=== PATIENT | male | born 1940 | race Caucasian/White ===

== ENCOUNTER 2017-03-14 11:11 | Observation (INO) | payer MEDICARE ==
[2017-03-14 11:51] LABS: Hematocrit 40.1 % (42-50); Mean Cell Volume 91.1 fl (78-100); Mean Corpuscular Hemoglobin 29.5 pg (26-32); Mean Corpuscular Hgb Concent. 32.4 g/dl (32-36); Mean Platelet Volume 10.2 fl (6-9.5); Platelet Count 244 K/mm3 (150-450); Red Cell Distribution Width 14.6 % (11.5-14.0); White Blood Count 9.4 K/mm3 (4.0-10.5)
[2017-03-14] MEDS ORDERED: Cardizem IV 50 MG/10 ML IV ONE (11:52)
[2017-03-14] MEDS: CARDIZEM DRIP 100 MG/100 ML D5W 100 ML IV PRN ×2 (12:05→20:06)
[2017-03-14 12:31] LABS: ALBUMIN 3.9 g/dL (3.4-5.0); ALKALINE PHOSPHATASE 69 U/L (46-116); ANION GAP 11.7 MEQ/L (5-15); BLOOD UREA NITROGEN 14 mg/dL (9-20); CHLORIDE 104 mEq/L (98-107); Calcium 9.1 mg/dL (8.5-10.1); Carbon Dioxide 27.3 mEq/L (21-32); EST GLOMERULAR FILTRATION RATE > 60 ML/MIN; Glucose 108 MG/DL (70-110); Potassium 3.5 mEq/L (3.5-5.1); SGOT/AST 30 U/L (15-37); SGPT/ALT 50 U/L (12-78); SODIUM 140 mEq/L (136-145); TSH, 3RD Generation 0.788 mIU/L (0.358-3.740)
--- NOTE | 2017-03-14 12:33 | XRAY ---
Indication: Atrial fibrillation. Comparison: None Portable chest demonstrates lingular atelectasis/scarring and right base calcified granulomas. Remaining lungs clear. Heart is borderline enlarged. Vascularity normal. Bony thorax intact with old left clavicle and right 8th rib fractures. Impression: Nonacute chest with chronic features.
[2017-03-14] MEDS: ELIQUIS PO SCH ×2 (14:34→21:30)
[2017-03-14 16:38] LABS: Appearance CLEAR (CLEAR); Glucose NEGATIVE (NEGATIVE); Leukocyte Esterase NEGATIVE (NEGATIVE); Nitrite NEGATIVE (NEGATIVE); Protein,Urine Dip NEGATIVE (Negative)
[2017-03-14 16:39] LABS: Bilirubin NEGATIVE (NEGATIVE); Blood NEGATIVE Ery/ul (0-5); Ketones NEGATIVE (NEGATIVE); Urobilinogen NORMAL mg/dL (0-1)
--- NOTE | 2017-03-15 08:08 | PCM.NOTE ---
Date and Time: 03/15/17806 Subjective Assessment: patient denies complaints, states he feels great. no chest pain, no dyspnea. heart rate is controlled but goes up with any movement Objective Exam General Appearance: no apparent distress, alert Skin Exam: normal color, warm, dry Respiratory Exam: normal breath sounds, lungs clear, No respiratory distress Cardiovascular Exam: regular rate/rhythm, normal heart sounds Gastrointestinal/Abdomen Exam: soft, No tenderness, No mass Extremity Exam: normal inspection, normal range of motion OBJECTIVE DATA Vital Signs: Vital Signs - 24 hr Temp Pulse Resp BP BP Pulse Ox 03/15/17 06:00 91 H 14 109/83 93 L 03/15/17 05:00 110 H 21 116/91 94 L 03/15/17 04:00 98.7 F 94 H 14 124/83 94 L 03/15/17 03:00 115 H 22 96/74 94 L 03/15/17 02:00 109 H 12 110/83 92 L 03/15/17 01:00 98 H 19 116/59 93 L 03/15/17 00:01 105 H 03/15/17 00:00 98.7 F 105 H 12 124/69 93 L 03/14/17 23:00 96 H 16 118/81 91 L 03/14/17 22:00 89 12 120/81 92 L 03/14/17 21:00 96 H 18 116/87 93 L 03/14/17 20:00 98.4 F 104 H 21 106/76 93 L 03/14/17 18:52 88 17 97/61 92 L 03/14/17 18:00 87 17 92 L 03/14/17 17:00 103 H 16 97/78 93 L 03/14/17 16:00 98.6 F 110 H 16 110/69 92 L 03/14/17 15:00 125 H 16 106/77 94 L 03/14/17 14:00 98.6 F 93 H 15 106/77 94 L 03/14/17 12:52 98.6 F 126 H 18 115/59 95 03/14/17 12:05 128 H 108/90 03/14/17 12:00 98.6 F 128 H 18 108/90 95 03/14/17 11:50 98.6 F 144 H 18 108/90 95 03/14/17 11:29 98.6 F 144 H 18 108/90 95 Oxygen-Last 24 hours O2 Percentage 2 Liters = 28% O2 Percentage 2 Liters = 28% O2 Percentage 2 Liters = 28% O2 Percentage 2 Liters = 28% O2 Percentage 2 Liters = 28% Pain Assessment - Last Documented Pain Intensity 0 Pain Scale Used 0-10 Pain Scale Intake and Output: Intake & Output 03/12/17 03/13/17 03/14/17 03/15/17 11:59 11:59 11:59 11:59 Intake Total 488 Output Total 1400 Balance -912 Weight 124.8 kg Lab Results: Lab Results-Last 24 Hours 03/14/17 03/14/17 03/14/17 Range/Units 11:40 11:40 11:40 WBC 9.4 (4.0-10.5) K/mm3 Corrected WBC (auto) RBC 4.40 (4.1-5.6) M/mm3 Hgb 13.0 (12.5-18.0) gm/dl Hct 40.1 L (42-50) % MCV 91.1 (78-100) fl MCH 29.5 (26-32) pg MCHC 32.4 (32-36) g/dl RDW 14.6 H (11.5-14.0) % Plt Count 244 (150-450) K/mm3 MPV 10.2 H (6-9.5) fl Gran % Lymphocytes % Monocytes % Eosinophils % Basophils % Basophils # Sodium 140 (136-145) mEq/L Potassium 3.5 (3.5-5.1) mEq/L Chloride 104 (98-107) mEq/L Carbon Dioxide 27.3 (21-32) mEq/L Anion Gap 11.7 (5-15) MEQ/L BUN 14 (9-20) mg/dL Creatinine 1.00 (0.55-1.30) mg/dl Estimated GFR > 60 ML/MIN Glucose 108 (70-110) MG/DL Calcium 9.1 (8.5-10.1) mg/dL Magnesium (1.8-2.4) mg/dL Total Bilirubin 0.40 (0.2-1.0) mg/dL AST 30 (15-37) U/L ALT 50 (12-78) U/L Alkaline Phosphatase 69 (46-116) U/L Troponin I < 0.017 (0.000-0.056) ng/ml NT-Pro-B Natriuret Pep (0-125) pg/ml Serum Total Protein 7.0 (6.4-8.2) gm/dL Albumin 3.9 (3.4-5.0) g/dL TSH 3rd Generation 0.788 (0.358-3.740) mIU/L Ur Collection Type Urine Color (YELLOW) Urine Appearance (CLEAR) Urine pH (5-6) Ur Specific Ira (1.005-1.025) Urine Protein (Negative) Urine Ketones (NEGATIVE) Urine Blood (0-5) Logan/ul Urine Nitrite (NEGATIVE) Urine Bilirubin (NEGATIVE) Urine Urobilinogen (0-1) mg/dL Ur Leukocyte Esterase (NEGATIVE) Urine Glucose (NEGATIVE) mg/dL Slides for Path Review Specimen Received 03/14/17 03/14/17 03/14/17 Range/Units 11:40 12:15 12:15 WBC Cancelled (4.0-10.5) K/mm3 Corrected WBC (auto) Cancelled RBC Cancelled (4.1-5.6) M/mm3 Hgb Cancelled (12.5-18.0) gm/dl Hct Cancelled (42-50) % MCV Cancelled (78-100) fl MCH Cancelled (26-32) pg MCHC Cancelled (32-36) g/dl RDW Cancelled (11.5-14.0) % Plt Count Cancelled (150-450) K/mm3 MPV Cancelled (6-9.5) fl Gran % Cancelled Lymphocytes % Cancelled Monocytes % Cancelled Eosinophils % Cancelled Basophils % Cancelled Basophils # Cancelled Sodium (136-145) mEq/L Potassium (3.5-5.1) mEq/L Chloride (98-107) mEq/L Carbon Dioxide (21-32) mEq/L Anion Gap (5-15) MEQ/L BUN (9-20) mg/dL Creatinine (0.55-1.30) mg/dl Estimated GFR ML/MIN Glucose (70-110) MG/DL Calcium (8.5-10.1) mg/dL Magnesium 2.1 (1.8-2.4) mg/dL Total Bilirubin (0.2-1.0) mg/dL AST (15-37) U/L ALT (12-78) U/L Alkaline Phosphatase (46-116) U/L Troponin I (0.000-0.056) ng/ml NT-Pro-B Natriuret Pep 1885 H (0-125) pg/ml Serum Total Protein (6.4-8.2) gm/dL Albumin (3.4-5.0) g/dL TSH 3rd Generation (0.358-3.740) mIU/L Ur Collection Type Urine Color (YELLOW) Urine Appearance (CLEAR) Urine pH (5-6) Ur Specific Ira (1.005-1.025) Urine Protein (Negative) Urine Ketones (NEGATIVE) Urine Blood (0-5) Logan/ul Urine Nitrite (NEGATIVE) Urine Bilirubin (NEGATIVE) Urine Urobilinogen (0-1) mg/dL Ur Leukocyte Esterase (NEGATIVE) Urine Glucose (NEGATIVE) mg/dL Slides for Path Review Cancelled Specimen Received 03/14/17 Range/Units 15:17 WBC (4.0-10.5) K/mm3 Corrected WBC (auto) RBC (4.1-5.6) M/mm3 Hgb (12.5-18.0) gm/dl Hct (42-50) % MCV (78-100) fl MCH (26-32) pg MCHC (32-36) g/dl RDW (11.5-14.0) % Plt Count (150-450) K/mm3 MPV (6-9.5) fl Gran % Lymphocytes % Monocytes % Eosinophils % Basophils % Basophils # Sodium (136-145) mEq/L Potassium (3.5-5.1) mEq/L Chloride (98-107) mEq/L Carbon Dioxide (21-32) mEq/L Anion Gap (5-15) MEQ/L BUN (9-20) mg/dL Creatinine (0.55-1.30) mg/dl Estimated GFR ML/MIN Glucose (70-110) MG/DL Calcium (8.5-10.1) mg/dL Magnesium (1.8-2.4) mg/dL Total Bilirubin (0.2-1.0) mg/dL AST (15-37) U/L ALT (12-78) U/L Alkaline Phosphatase (46-116) U/L Troponin I (0.000-0.056) ng/ml NT-Pro-B Natriuret Pep (0-125) pg/ml Serum Total Protein (6.4-8.2) gm/dL Albumin (3.4-5.0) g/dL TSH 3rd Generation (0.358-3.740) mIU/L Ur Collection Type VOID Urine Color YELLOW (YELLOW) Urine Appearance CLEAR (CLEAR) Urine pH 5.0 (5-6) Ur Specific Ira 1.010 (1.005-1.025) Urine Protein NEGATIVE (Negative) Urine Ketones NEGATIVE (NEGATIVE) Urine Blood NEGATIVE (0-5) Logan/ul Urine Nitrite NEGATIVE (NEGATIVE) Urine Bilirubin NEGATIVE (NEGATIVE) Urine Urobilinogen NORMAL (0-1) mg/dL Ur Leukocyte Esterase NEGATIVE (NEGATIVE) Urine Glucose NEGATIVE (NEGATIVE) mg/dL Slides for Path Review Specimen Received 03/14/17 1630 Radiology Exams: Radiology Procedures Category Date Time Status CHEST 1 VIEW (PORTABLE) Routine Exams 03/14/17 11:45 Completed ECHO W/2D AND DOPPLER [US] Routine Exams 03/14/17 15:15 Taken Assessment/Plan (1) Atrial fibrillation with RVR Current Visit: Yes Status: Acute Assessment & Plan: started on eliquis, transition to po cardizem today. if rate controlled and continues to be asymtomatic might be able to discharge later today or tomorrow Code(s): I48.91 - UNSPECIFIED ATRIAL FIBRILLATION
[2017-03-15] MEDS: ELIQUIS PO SCH ×2 (09:21→18:00)
[2017-03-15] MEDS ORDERED: Cardizem CD 180 MG PO SCH (10:00)
[2017-03-15 13:04] VITALS: O2SAT 94
[2017-03-15 16:44] VITALS: PULSE 95
[2017-03-15 16:46] VITALS: BP 119/80
== END 2017-03-15 18:05 | disposition home or self-care (01) ==
LOC: UNDOADMOB 11:11 → ICU 11:11 → INTOOBSV 11:11 → ICU 11:11 → UNDODISOB 03-15 18:05
PROVIDERS: ADMIT Family Medicine; ATTEND Family Medicine
DX: I48.91 Unspecified atrial fibrillation (principal)
CPT/HCPCS: 36415; 71045; 80053; 81002; 83735; 83880; 84443; 84484; 85027; 93268; 93306; G0378; A9270-GY

== ENCOUNTER 2018-02-11 09:47 | Inpatient (IN) | payer MEDICARE ==
[2018-02-11] MEDS ORDERED: solu-MEDROL 125 MG IV ONE (10:03)
[2018-02-11] MEDS ORDERED: DUONEB 0.5-3 MG/3 ml Neb IH ONE (10:03)
[2018-02-11] MEDS ORDERED: Pepcid 20 MG VIAL IV ONE ×2 (10:03→10:19)
--- NOTE | 2018-02-11 10:11 | ERPHSYRPT ---
- History of Present Illness Time Seen by Provider: 02/11/18 09:50 Source: patient, family Exam Limitations: no limitations Physician History: cough x 3 weeks; no travel; no exposures; with fever and chills; productive multicolored sputum; no blood or pain; getting worse; seen in clinic 4-5 days ago; given inhaler and shot of steroids; no better Timing/Duration: today (worse), week(s) (3 cough), intermittent, gradual onset, worse Activities at Onset: rest Severity of Dyspnea-Max: moderate Severity of Dyspnea-Current: moderate Possible Cause: occasional episodes Modifying Factors: Improves With: albuterol inhaler (no help), coughing (worse) , exertion Associated Symptoms: cough, fever, wheezing, ankle swelling, chills, productive cough International travel in last 2 weeks: No Allergies/Adverse Reactions: No Known Drug Allergies Allergy (Verified 02/11/18 10:14) Home Medications: Aspirin 1 cap PO DAILY 03/14/17 [History] Albuterol Common Canister [Proventil Common Canister] 90 mcg IH DAILY [History] Carvedilol 25 mg PO DAILY 02/11/18 [History] Furosemide 20 mg [Lasix 20 mg] 20 mg PO DAILY 02/11/18 [History] Losartan Potassium 100 mg PO DAILY 02/11/18 [History] Spironolactone 25 mg PO DAILY 02/11/18 [History] - Review of Systems Constitutional: Fever, Chills, Malaise Eyes: No Symptoms Ears, Nose, & Throat: Nose Congestion (clear), Sinus Drainage (clear), Throat Pain (slight from coughing), No Ear Pain, No Tinnitus, No Throat Swelling, No Painful Swallowing Respiratory: Cough, Dyspnea on Exertion (MIRANDA), Wheezing, No Cyanosis Cardiac: Edema, No Chest Pain, No Palpitations, No Syncope, No Orthopnea Abdominal/Gastrointestinal: No Abdominal Pain, No Nausea, No Vomiting, No Diarrhea Genitourinary Symptoms: No Symptoms Musculoskeletal: Arthralgias, No Neck Pain, No Fall, No Injury Skin: No Symptoms Neurological: No Symptoms Psychological: No Symptoms Endocrine: No Symptoms Hematologic/Lymphatic: No Symptoms Immunological/Allergic: No Symptoms - Past Medical History Pertinent Past Medical History: Yes Neurological History: No Pertinent History ENT History: No Pertinent History Cardiac History: Arrhythmia, Congestive Heart Failure, Hypertension Respiratory History: Asthma Endocrine Medical History: No Pertinent History Musculoskeletal History: No Pertinent History GI Medical History: No Pertinent History History: No Pertinent History Psycho-Social History: No Pertinent History Male Reproductive Disorders: No Pertinent History - Past Surgical History Past Surgical History: No Neuro Surgical History: No Pertinent History Cardiac: No Pertinent History Respiratory: No Pertinent History Gastrointestinal: No Pertinent History Genitourinary: No Pertinent History Musculoskeletal: No Pertinent History Male Surgical History: No Pertinent History - Social History Smoking Status: Never smoker Exposure to second hand smoke: No Alcohol Use: None Drug Use: none Patient Lives Alone: No Significant Family History: hypertension - Female History Hx Now: No - Nursing Vital Signs Nursing Vital Signs: Initial Vital Signs Temperature 100.3 F 02/11/18 09:57 Pulse Rate 120 H 02/11/18 09:57 Respiratory Rate 22 02/11/18 09:57 Blood Pressure 104/69 02/11/18 09:57 O2 Sat by Pulse Oximetry 90 L 02/11/18 09:57 Pain Scale Pain Intensity 0 - Physical Exam General Appearance: moderate distress, alert, obese Eye Exam: PERRL/EOMI, eyes nml inspection, No photophobia Ears, Nose, Throat Exam: hearing grossly normal, normal ENT inspection, normal pharynx, nasal congestion (clear), No pharyngeal erythema, No tonsillar exudate , No tonsillar swelling Neck Exam: normal inspection, non-tender, supple, full range of motion, No meningismus, No JVD Respiratory Exam: respiratory distress (mild to moderate tachypnea), airway intact, prolonged expirations (mild), crackles/rales (bibasilar), wheezing, No normal breath sounds, No chest tenderness, No lungs clear, No rhonchi, No pleural rub Cardiovascular/Chest Exam: normal heart sounds, normal peripheral pulses, edema (trace), tachycardia (130), irregular, No regular rate/rhythm, No murmur, No JVD Abdominal/Gastrointestinal Exam: soft, normal bowel sounds, distention (soft chronic obesity), No tenderness, No mass, No guarding, No pulsatile mass, No rebound, No organomegaly Rectal Exam: deferred Extremity Exam: non-tender, normal range of motion, normal inspection, normal capillary refill, no calf tenderness, pedal edema (trace), No sri's sign Peripheral Pulses Exam: carotid (R): 4+, carotid (L): 4+, femoral (R): 4+, femoral (L): 4+, dorsalis-pedis (R): 3+, dorsalis-pedis (L): 3+ Neurologic Exam: alert, oriented x 3, cooperative, hide paster II-XII nml as tested, normal mood/affect, nml cerebellar function, nml station & gait Skin Exam: normal color, warm, dry, No rash, No cyanosis Lymphatic Exam: No adenopathy SpO2 Interpretation: borderline oxygenation, O2 applied SpO2: 92 Oxygen Delivery: Room Air - Course Nursing assessment & vital signs reviewed: Yes EKG Interpreted by Me: RATE (130), A-fib, Left [place] Deviation, NORMAL INTERVALS , 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; ), Non-specific ST Changes ( flattening of Ts I, avl, V4,5,6), Other (AF w RVR and occassinoal PVC) Rhythm Strip: Rate (128), Atrial Fibrillation, Atrial Tachycardia - Radiology Exams Chest X-ray Interpretation: Reviewed by me, Teleradiologist Report, No Pneumonia, No Pneumothorax, Nml Heart Size, No Infiltrates, Other (aging chest; scarring; unchanged form 02/07/18) Ordered Tests: Active Orders 24 hr Category Date Time Status Bedrest ROUTINE Activity 02/11/18 11:30 Ordered Up With Assistance ROUTINE Activity 02/11/18 11:30 Ordered Admit as Inpatient ROUTINE Care 02/11/18 11:30 Ordered Laboratory Animal Caretaker STAT Care 02/11/18 10:04 Active Code Status Order ROUTINE Care 02/11/18 11:30 Ordered Code Status Order ROUTINE Care 02/11/18 11:30 Ordered EKG-ER Only STAT Care 02/11/18 10:03 Active Fall Protocol ROUTINE Care 02/11/18 11:32 Ordered IV Care Q6H Care 02/11/18 11:30 Ordered IV Care Q6H Care 02/11/18 11:30 Ordered IV Insertion STAT Care 02/11/18 10:03 Active Implement CHF Pathway ROUTINE Care 02/11/18 11:30 Ordered Oxygen-ED Only NASAL CANNULA 2 lpm Care 02/11/18 10:03 Active Pulse Oximetry (ED) STAT Care 02/11/18 10:03 Active Rectal Temperature STAT Care 02/11/18 10:03 Active Edin Van, Apply ROUTINE Care 02/11/18 11:30 Ordered Weight,Daily 0600 Care 02/11/18 11:30 Ordered Weight,Daily 0600 Care 02/11/18 11:30 Ordered Cardiac Diet Diet 02/11/18 Lunch Ordered CHEST 1 VIEW (PORTABLE) Stat Exams 02/11/18 10:03 Taken BLOOD CULTURE Stat Lab 02/11/18 10:15 Received BMP AM.LAB Lab 02/12/18 04:00 Ordered CBC AM.LAB Lab 02/12/18 04:00 Ordered CBC W DIFF Stat Lab 02/11/18 10:05 Completed CMP Stat Lab 02/11/18 10:05 Completed CULTURE,SPUTUM Stat Lab 02/11/18 10:03 Uncollected Lactic Acid Stat Lab 02/11/18 10:35 Completed MAGNESIUM Stat Lab 02/11/18 10:05 Completed Manual Differential NC Stat Lab 02/11/18 10:05 Completed NT PRO BNP AM.LAB Lab 02/12/18 04:00 Ordered NT PRO BNP Stat Lab 02/11/18 10:05 Completed PROTIME WITH INR Stat Lab 02/11/18 10:05 Completed TROPONIN Q3H Lab 02/11/18 10:05 Completed TROPONIN Q3H Lab 02/11/18 13:15 Ordered TROPONIN Q3H Lab 02/11/18 16:15 Ordered TROPONIN Q3H Lab 02/11/18 19:15 Ordered TROPONIN Q3H Lab 02/11/18 22:15 Ordered Oxygen NASAL CANNULA 2 lpm RT 02/11/18 11:30 Ordered Peak Expiratory Flow Rate ONCE RT 02/11/18 10:03 Active Pulse Oximetry CONTINUOUS RT 02/11/18 11:33 Ordered Respiratory Nebulizer STAT RT 02/11/18 10:05 Active Respiratory Therapy Assessment DAILY RT 02/11/18 10:15 Active Respiratory Therapy Consult ROUTINE RT 02/11/18 11:30 Ordered Transfer Order Routine Transfer 02/11/18 Ordered Medication Summary Generic Name Dose Route Start Last Admin Trade Name Freq PRN Reason Stop Dose Admin Sodium Chloride 1,000 mls @ 50 mls/hr 02/11/18 10:15 02/11/18 10:24 Sodium Chloride 0.9% 1000 Ml IV 03/13/18 10:14 50 mls/hr .Q20H REBECCA Administration Discontinued Medications Generic Name Dose Route Start Last Admin Trade Name Audi PRN Reason Stop Dose Admin Acetaminophen 650 mg 02/11/18 10:33 02/11/18 10:37 Tylenol 325 Mg PO 02/11/18 10:34 650 mg STAT STA Administration Acetaminophen Confirm 02/11/18 10:36 Tylenol 325 Mg Administered 02/11/18 10:37 Dose 650 mg .ROUTE .STK-MED ONE Albuterol/Ipratropium 3 ml 02/11/18 10:03 02/11/18 10:14 Duoneb 0.5-3 Mg/3 Ml Neb IH 02/11/18 10:04 3 ml STAT ONE Administration Famotidine 20 mg 02/11/18 10:03 02/11/18 10:24 Pepcid 20 Mg Vial IV 02/11/18 10:04 20 mg STAT ONE Administration Famotidine Confirm 02/11/18 10:19 Pepcid 20 Mg Vial Administered 02/11/18 10:20 Dose 20 mg IV .STK-MED ONE Ceftriaxone Sodium/Dextrose 1 g in 50 mls @ 100 mls/hr 02/11/18 10:48 10:56 Rocephin 1 Gm-D5w 50 Ml Bag IV 02/11/18 11:17 100 ml/hr STAT ONE 100 mls/hr Administration Ceftriaxone Sodium/Dextrose Confirm 02/11/18 10:52 Rocephin 1 Gm-D5w 50 Ml Bag Administered 02/11/18 10:53 Dose 1 g in 50 mls @ ud IV .STK-MED ONE Methylprednisolone Sodium Succinate 125 mg 02/11/18 10:03 02/11/18 10:24 Solu-Medrol 125 Mg IV 02/11/18 10:04 125 mg STAT ONE Administration Methylprednisolone Sodium Succinate Confirm 02/11/18 10:19 Solu-Medrol 125 Mg Administered 02/11/18 10:20 Dose 125 mg .ROUTE .STK-MED ONE Lab/Rad Data: Laboratory Result Diagrams 02/11/18 10:05 02/11/18 10:05 Laboratory Results 02/11/18 02/11/18 02/11/18 Range/Units 10:35 10:15 10:05 WBC (4.0-10.5) K/mm3 RBC (4.1-5.6) M/mm3 Hgb (12.5-18.0) gm/dl Hct (42-50) % MCV (78-100) fl MCH (26-32) pg MCHC (32-36) g/dl RDW (11.5-14.0) % Plt Count (150-450) K/mm3 MPV (6-9.5) fl PT (8.83-12.87) SECONDS INR (0.8-3.0) Sodium (137-145) mmol/L Potassium (3.5-5.1) mmol/L Chloride (98-107) mmol/L Carbon Dioxide (22-30) mmol/L Anion Gap (5-15) MEQ/L BUN (9-20) mg/dL Creatinine (0.66-1.25) mg/dL Estimated GFR ML/MIN Glucose (74-106) mg/dL Lactic Acid 1.1 (0.4-2.0) Calcium (8.4-10.2) mg/dL Magnesium (1.6-2.3) mg/dL Total Bilirubin (0.2-1.3) mg/dL AST (17-59) U/L ALT (0-50) U/L Alkaline Phosphatase (38-126) U/L Troponin I 0.017 (0.000-0.034) ng/mL NT-Pro-B Natriuret Pep (0-1800) pg/mL Serum Total Protein (6.3-8.2) g/dL Albumin (3.5-5.0) g/dL Influenza Type A Ag NEGATIVE (NEGATIVE) Influenza Type B Ag NEGATIVE (NEGATIVE) RSV (PCR) NEGATIVE (Negative) 02/11/18 02/11/18 02/11/18 Range/Units 10:05 10:05 10:05 WBC 9.8 (4.0-10.5) K/mm3 RBC 4.19 (4.1-5.6) M/mm3 Hgb 12.8 (12.5-18.0) gm/dl Hct 39.9 L (42-50) % MCV 95.2 (78-100) fl MCH 30.5 (26-32) pg MCHC 32.1 (32-36) g/dl RDW 15.0 H (11.5-14.0) % Plt Count 209 (150-450) K/mm3 MPV 10.2 H (6-9.5) fl PT 26.3 H (8.83-12.87) SECONDS INR 2.24 (0.8-3.0) Sodium 141 (137-145) mmol/L Potassium 4.3 (3.5-5.1) mmol/L Chloride 104 (98-107) mmol/L Carbon Dioxide 28 (22-30) mmol/L Anion Gap 13.3 (5-15) MEQ/L BUN 20 (9-20) mg/dL Creatinine 0.76 (0.66-1.25) mg/dL Estimated GFR > 60.0 ML/MIN Glucose 135 H (74-106) mg/dL Lactic Acid (0.4-2.0) Calcium 8.9 (8.4-10.2) mg/dL Magnesium 1.9 (1.6-2.3) mg/dL Total Bilirubin 1.20 (0.2-1.3) mg/dL AST 16 L (17-59) U/L ALT 17 (0-50) U/L Alkaline Phosphatase 50 (38-126) U/L Troponin I (0.000-0.034) ng/mL NT-Pro-B Natriuret Pep 8220 H (0-1800) pg/mL Serum Total Protein 6.6 (6.3-8.2) g/dL Albumin 3.7 (3.5-5.0) g/dL Influenza Type A Ag (NEGATIVE) Influenza Type B Ag (NEGATIVE) RSV (PCR) (Negative) reviewed - Progress Progress: improved (clinically after Resp tx), re-examined (after meds and xr) Air Movement: fair Progress Note: 02/11/18 10:[address] on O2, give resp tx and get peak flow and check old chart; give duoneb and monitor and recheck; at bedside; lab and xr pending; ekg pending ; 02/11/18 10:47 tolerated Resp treatment well; no change in peak flow; <100 pre and post but feels better after and sats no 95% on RA after treatment; CXR NAD only charonic ; reviewed old cxr from 02-07-18; lactic 1.1 cbc ok; will continue to monitor and recheck 02/11/18 10:49 will give i gram Rocephin after blood cultures done 02/11/18 11:26 Dr Donis consulted and will admit ; family at bedside and notified of results and admission; has low cardiac EF and will not give cardizem at this time Blood Culture(s) Obtained: Yes Antibiotics given: Yes Discussed with : Michele (consulted and will admit) Will see patient in: hospital (full admit) Counseled pt/family regarding: lab results, diagnosis, need for follow-up, rad results - Departure Time of Disposition: 11:27 Departure Disposition: In-patient Admission Clinical Impression: Atrial fibrillation with RVR, FUO (fever of unknown origin), CHF (congestive heart failure), Hypoxia, COPD exacerbation, Hypotensive episode Condition: Critical Critical Care Time: Yes Critical Care Time(excluding separately billable procedures): 30-74 minutes Referrals: GLADIS DONIS [Primary Care Provider] - Instructions: Heart Failure, Chronic Obstructive Pulmonary Disease
[2018-02-11] MEDS ORDERED: Sodium Chloride 0.9% 1000 ML 1,000 ML IV SCH (10:15)
[2018-02-11] MEDS ORDERED: Sodium Chloride 0.9% 1000 ML 1,000 ML ONE (10:19)
[2018-02-11] MEDS ORDERED: solu-MEDROL 125 MG ONE (10:19)
[2018-02-11 10:26] LABS: Hematocrit 39.9 % (42-50); Hemoglobin 12.8 gm/dl (12.5-18.0); Mean Cell Volume 95.2 fl (78-100); Mean Corpuscular Hemoglobin 30.5 pg (26-32); Mean Corpuscular Hgb Concent. 32.1 g/dl (32-36); Mean Platelet Volume 10.2 fl (6-9.5); Platelet Count 209 K/mm3 (150-450); Red Blood Count 4.19 M/mm3 (4.1-5.6); White Blood Count 9.8 K/mm3 (4.0-10.5)
[2018-02-11] MEDS ORDERED: TYLENOL 325 MG PO STA (10:33)
[2018-02-11] MEDS ORDERED: TYLENOL 325 MG ONE (10:36)
[2018-02-11 10:45] LABS: INR 2.24 (0.8-3.0)
[2018-02-11] MEDS ORDERED: ROCEPHIN 1 Gm-D5w 50 ml Bag** 1 G/50 ML IVPB IV ONE ×2 (10:48→10:52)
[2018-02-11 10:51] LABS: ALBUMIN 3.7 g/dL (3.5-5.0); ALKALINE PHOSPHATASE 50 U/L (38-126); ANION GAP 13.3 MEQ/L (5-15); BLOOD UREA NITROGEN 20 mg/dL (9-20); CHLORIDE 104 mmol/L (98-107); Calcium 8.9 mg/dL (8.4-10.2); Carbon Dioxide 28 mmol/L (22-30); Creatinine 1 0.76 mg/dL (0.66-1.25); Glucose 135 mg/dL (74-106); NT PRO BNP 8220 pg/mL (0-1800); Potassium 4.3 mmol/L (3.5-5.1); SGOT/AST 16 U/L (17-59); SGPT/ALT 17 U/L (0-50); SODIUM 141 mmol/L (137-145); Total Protein 6.6 g/dL (6.3-8.2)
[2018-02-11 11:06] LABS: INFLUENZA A NEGATIVE (NEGATIVE); INFLUENZA B NEGATIVE (NEGATIVE); RESPIRATORY SYNCTIAL VIRUS NEGATIVE (Negative)
[2018-02-11] MEDS ORDERED: Lanoxin 0.5 MG/2 ML INJECTION IV ONE (12:17)
[2018-02-11] MEDS: Sodium Chloride 0.9% 10 ML FLUSH Syringe IV SCH ×2 (14:08→21:20)
[2018-02-11] MEDS ORDERED: DUONEB 0.5-3 MG/3 ml Neb IH SCH (15:00)
[2018-02-11 15:10] LABS: BAND 7 % (0.0-2.0); Eosinophil 1 % (0.00-3.0); Lymphocytes 19 % (24-44); Monocyte 15 % (0.0-12.0); Neutrophils 58 % (36.-66.); Platelet Estimate NORMAL (NORMAL); Total Cells Counted 100; Toxic Granulation 1+
[2018-02-11] MEDS ORDERED: Xopenex 1.25 MG/0.5 ML UD NEBULE IH ONE ×2 (15:34→19:10)
[2018-02-11] MEDS ORDERED: TYLENOL 325 MG PO PRN (16:00)
--- NOTE | 2018-02-11 16:07 | XRAY ---
Indication: Cough, congestion, and short of breath 4 weeks. Comparison: February 07, 2018. Portable chest unchanged again hyperinflated with minimal bibasilar fibrosis/scarring and right base calcified granuloma. Heart and mediastinal structures within normal limits. No new/acute findings.
[2018-02-11] MEDS: solu-MEDROL 125 MG IV SCH ×2 (18:04→23:35)
[2018-02-11] MEDS ORDERED: Lanoxin 0.5 MG/2 ML INJECTION IV SCH (18:20)
[2018-02-11] MEDS ORDERED: Sodium Chloride 3 ML UD NEBULES IH ONE (19:11)
--- NOTE | 2018-02-11 19:41 | PCM.HP ---
History of Present Illness - Chief Complaint Chief Complaint: CHF, AFIB RVR, Bronchitis Date: 02/11/18 History of Present Illness: is a 77 year old male. who suffers from severe systolic heart failure with LVEF about 15 %. He has had perstent woresning coughing and shortness of breath with some chilling and weakness for the last several days. he was seen in [facility] and treated for bronchitis and had chest xray on 02/07/18. he continued to not improve and presented to ed today. He is feeling better currently after initial treatment and oxygen. he has not had any swelling or orthopnea - Review of Systems Constitutional: Fever, Chills, Weakness Eyes: No Symptoms Ears, Nose, & Throat: No Symptoms Respiratory: Cough, Short Of Breath Cardiac: No Chest Pain, No Edema, No Syncope Abdominal/Gastrointestinal: No Abdominal Pain, No Nausea, No Vomiting, No Diarrhea Genitourinary Symptoms: No Dysuria Musculoskeletal: No Back Pain, No Neck Pain Skin: No Rash Neurological: No Dizziness, No Focal Weakness, No Sensory Changes Psychological: No Symptoms Endocrine: No Symptoms Hematologic/Lymphatic: No Symptoms Immunological/Allergic: No Symptoms Medications & Allergies Home Medications: Home Medication List Aspirin 1 cap PO DAILY 03/14/17 [History Confirmed 02/11/18] Apixaban [Eliquis 5 mg Tablet] 5 mg PO BID #60 tablet 03/15/17 [Rx Confirmed 02/11/18] Carvedilol 25 mg PO DAILY 02/11/18 [History Confirmed 02/11/18] Furosemide 20 mg [Lasix 20 mg] 20 mg PO DAILY 02/11/18 [History Confirmed 02/11/18] Losartan Potassium 100 mg PO DAILY 02/11/18 [History Confirmed 02/11/18] Spironolactone 25 mg PO DAILY 02/11/18 [History Confirmed 02/11/18] Allergies/Adverse Reactions: Allergies Allergy/AdvReac Type Severity Reaction Status Date / Time No Known Drug Allergies Allergy Verified 02/11/18 12:42 - Past Medical History Past Medical History: Yes Neurological History: No Pertinent History ENT History: No Pertinent History Cardiac History: Arrhythmia, Congestive Heart Failure, Hypertension Respiratory History: Asthma Endocrine Medical History: No Pertinent History Musculoskelatal History: No Pertinent History GI Medical History: No Pertinent History History: No Pertinent History Pyscho-Social History: No Pertinent History Male Reproductive Disorders: No Pertinent History Comment: carioversion - Past Surgical History Past Surgical History: No Neuro Surgical History: No Pertinent History Cardiac History: Cardiac Catheterization Respiratory Surgery: No Pertinent History GI Surgical History: No Pertinent History Genitourinary Surgical Hx: No Pertinent History Musculskeletal Surgical Hx: No Pertinent History Male Surgical History: No Pertinent History Other Surgical History: echocardiogram last week - Social History Smoking Status: Never smoker Exposure to second hand smoke: No Alcohol: None Drug Use: none Significant Family History: hypertension - Physical Exam Vital Signs: Vital Signs - 24 hr Temp Pulse Resp BP Pulse Ox 02/11/18 16:20 127 H 26 H 96 02/11/18 16:00 98 F 105 H 18 95/54 94 L 02/11/18 15:48 105 H 02/11/18 13:00 95 02/11/18 12:40 98.3 F 115 H 23 99/67 95 02/11/18 11:54 119 H 22 80/62 02/11/18 11:34 92 L 02/11/18 10:40 100.3 F 104 H 20 82/62 93 L 02/11/18 10:15 117 H 24 95 02/11/18 09:57 100.3 F 120 H 22 104/69 90 L Oxygen-Last 24 hours O2 Percentage 2 Liters = 28% O2 Percentage 2 Liters = 28% O2 Percentage 2 Liters = 28% General Appearance: obese Neurologic Exam: alert, oriented x 3, cooperative Eye Exam: No scleral icterus Ears, Nose, Throat Exam: moist mucous membranes Neck Exam: non-tender, supple Respiratory Exam: wheezing, No crackles/rales Cardiovascular Exam: murmur, tachycardia, irregular Gastrointestinal/Abdomen Exam: soft, normal bowel sounds, No tenderness, No distention, No mass, No guarding, No ecchymosis Extremity Exam: normal inspection, No calf tenderness, No pedal edema Skin Exam: warm, dry, No rash Results - Labs Lab/Micro Results: Lab Results-Last 24 Hours 02/11/18 02/11/18 02/11/18 Range/Units 10:05 10:05 10:05 WBC 9.8 (4.0-10.5) K/mm3 RBC 4.19 (4.1-5.6) M/mm3 Hgb 12.8 (12.5-18.0) gm/dl Hct 39.9 L (42-50) % MCV 95.2 (78-100) fl MCH 30.5 (26-32) pg MCHC 32.1 (32-36) g/dl RDW 15.0 H (11.5-14.0) % Plt Count 209 (150-450) K/mm3 MPV 10.2 H (6-9.5) fl Segmented Neutrophils 58 (36.-66.) % Band Neutrophils 7 H (0.0-2.0) % Lymphocytes (Manual) 19 L (24-44) % Monocytes (Manual) 15 H (0.0-12.0) % Eosinophils (Manual) 1 (0.00-3.0) % Toxic Granulation 1+ Platelet Estimate NORMAL (NORMAL) RBC Morphology NORMAL PT 26.3 H (8.83-12.87) SECONDS INR 2.24 (0.8-3.0) Sodium 141 (137-145) mmol/L Potassium 4.3 (3.5-5.1) mmol/L Chloride 104 (98-107) mmol/L Carbon Dioxide 28 (22-30) mmol/L Anion Gap 13.3 (5-15) MEQ/L BUN 20 (9-20) mg/dL Creatinine 0.76 (0.66-1.25) mg/dL Estimated GFR > 60.0 ML/MIN Glucose 135 H (74-106) mg/dL Lactic Acid (0.4-2.0) Calcium 8.9 (8.4-10.2) mg/dL Magnesium 1.9 (1.6-2.3) mg/dL Total Bilirubin 1.20 (0.2-1.3) mg/dL AST 16 L (17-59) U/L ALT 17 (0-50) U/L Alkaline Phosphatase 50 (38-126) U/L Troponin I (0.000-0.034) ng/mL NT-Pro-B Natriuret Pep 8220 H (0-1800) pg/mL Serum Total Protein 6.6 (6.3-8.2) g/dL Albumin 3.7 (3.5-5.0) g/dL Influenza Type A Ag (NEGATIVE) Influenza Type B Ag (NEGATIVE) RSV (PCR) (Negative) 02/11/18 02/11/18 02/11/18 Range/Units 10:05 10:15 10:35 WBC (4.0-10.5) K/mm3 RBC (4.1-5.6) M/mm3 Hgb (12.5-18.0) gm/dl Hct (42-50) % MCV (78-100) fl MCH (26-32) pg MCHC (32-36) g/dl RDW (11.5-14.0) % Plt Count (150-450) K/mm3 MPV (6-9.5) fl Segmented Neutrophils (36.-66.) % Band Neutrophils (0.0-2.0) % Lymphocytes (Manual) (24-44) % Monocytes (Manual) (0.0-12.0) % Eosinophils (Manual) (0.00-3.0) % Toxic Granulation Platelet Estimate (NORMAL) RBC Morphology PT (8.83-12.87) SECONDS INR (0.8-3.0) Sodium (137-145) mmol/L Potassium (3.5-5.1) mmol/L Chloride (98-107) mmol/L Carbon Dioxide (22-30) mmol/L Anion Gap (5-15) MEQ/L BUN (9-20) mg/dL Creatinine (0.66-1.25) mg/dL Estimated GFR ML/MIN Glucose (74-106) mg/dL Lactic Acid 1.1 (0.4-2.0) Calcium (8.4-10.2) mg/dL Magnesium (1.6-2.3) mg/dL Total Bilirubin (0.2-1.3) mg/dL AST (17-59) U/L ALT (0-50) U/L Alkaline Phosphatase (38-126) U/L Troponin I 0.017 (0.000-0.034) ng/mL NT-Pro-B Natriuret Pep (0-1800) pg/mL Serum Total Protein (6.3-8.2) g/dL Albumin (3.5-5.0) g/dL Influenza Type A Ag NEGATIVE (NEGATIVE) Influenza Type B Ag NEGATIVE (NEGATIVE) RSV (PCR) NEGATIVE (Negative) 02/11/18 02/11/18 Range/Units 13:18 16:15 WBC (4.0-10.5) K/mm3 RBC (4.1-5.6) M/mm3 Hgb (12.5-18.0) gm/dl Hct (42-50) % MCV (78-100) fl MCH (26-32) pg MCHC (32-36) g/dl RDW (11.5-14.0) % Plt Count (150-450) K/mm3 MPV (6-9.5) fl Segmented Neutrophils (36.-66.) % Band Neutrophils (0.0-2.0) % Lymphocytes (Manual) (24-44) % Monocytes (Manual) (0.0-12.0) % Eosinophils (Manual) (0.00-3.0) % Toxic Granulation Platelet Estimate (NORMAL) RBC Morphology PT (8.83-12.87) SECONDS INR (0.8-3.0) Sodium (137-145) mmol/L Potassium (3.5-5.1) mmol/L Chloride (98-107) mmol/L Carbon Dioxide (22-30) mmol/L Anion Gap (5-15) MEQ/L BUN (9-20) mg/dL Creatinine (0.66-1.25) mg/dL Estimated GFR ML/MIN Glucose (74-106) mg/dL Lactic Acid (0.4-2.0) Calcium (8.4-10.2) mg/dL Magnesium (1.6-2.3) mg/dL Total Bilirubin (0.2-1.3) mg/dL AST (17-59) U/L ALT (0-50) U/L Alkaline Phosphatase (38-126) U/L Troponin I 0.017 < 0.012 (0.000-0.034) ng/mL NT-Pro-B Natriuret Pep (0-1800) pg/mL Serum Total Protein (6.3-8.2) g/dL Albumin (3.5-5.0) g/dL Influenza Type A Ag (NEGATIVE) Influenza Type B Ag (NEGATIVE) RSV (PCR) (Negative) - Radiology Impressions Radiology Exams & Impressions: Radiology Procedures Category Date Time Status CHEST 1 VIEW (PORTABLE) Stat Exams 02/11/18 10:03 Completed - Other Procedures and Tests Respiratory Therapy 02/11/18 10:15 Respiratory Therapy Assessment DAILY 02/11/18 11:30 Oxygen NASAL CANNULA 2 lpm 02/11/18 15:34 Respiratory Nebulizer Q6H Assessment/Plan (1) COPD exacerbation Current Visit: Yes Status: Acute Onset Date: ~02/11/18 Assessment & Plan: currently on iv steroids and ceftriaxone failed outpatient treatment use xopenex with his severe tachycardia and hypotension with cardiomyopathy Code(s): J44.1 - CHRONIC OBSTRUCTIVE PULMONARY DISEASE W (ACUTE) EXACERBATION (2) Atrial fibrillation with RVR Current Visit: Yes Status: Acute Onset Date: ~02/11/18 Assessment & Plan: with his hypotension and low EF and his already taking 25 mg of coreg this am will load with digoxin 0.5 mg iv was given at noon and additional dose of 0.25 mg at 1800 and this has improved resting heart rate to the 90-100 range from the 130's initially anticoagulated chronically on Eliquis Code(s): I48.91 - UNSPECIFIED ATRIAL FIBRILLATION (3) Chronic systolic congestive heart failure, NYHA class 3 Current Visit: Yes Status: Chronic Assessment & Plan: elevated bnp but no evidence for congestion at this time no fluid overload currently monitor I/O closely. will continue home aldactone/lasix in am if bp holding also continue carvedilol and losartan if bp allows. Code(s): I50.22 - CHRONIC SYSTOLIC (CONGESTIVE) HEART FAILURE
[2018-02-11] MEDS: Xopenex 1.25 MG/0.5 ML UD NEBULE IH SCH (19:59)
[2018-02-11] MEDS: COREG 12.5 MG PO SCH (21:20)
[2018-02-11] MEDS: ELIQUIS 2.5 MG TABLET PO SCH (21:20)
[2018-02-11] MEDS ORDERED: NON-FORMULARY ITEM (Apixaban*** [Eliquis 5 Mg Tablet***] 5 MG) PO SCH (22:00)
[2018-02-11] MEDS ORDERED: Pepcid 20 MG PO SCH (22:00)
[2018-02-12] MEDS: Sodium Chloride 3 ML UD NEBULES IH SCH ×2 (00:54→07:03)
[2018-02-12] MEDS: Xopenex 1.25 MG/0.5 ML UD NEBULE IH SCH ×2 (00:54→07:03)
[2018-02-12 06:00] LABS: Hematocrit 40.1 % (42-50); Hemoglobin 12.5 gm/dl (12.5-18.0); Mean Cell Volume 97.1 fl (78-100); Mean Corpuscular Hemoglobin 30.3 pg (26-32); Mean Corpuscular Hgb Concent. 31.2 g/dl (32-36); Mean Platelet Volume 10.3 fl (6-9.5); Platelet Count 200 K/mm3 (150-450); Red Blood Count 4.13 M/mm3 (4.1-5.6); Red Cell Distribution Width 14.7 % (11.5-14.0); White Blood Count 7.5 K/mm3 (4.0-10.5)
[2018-02-12] MEDS: Sodium Chloride 0.9% 10 ML FLUSH Syringe IV SCH ×2 (06:03→21:56)
[2018-02-12] MEDS: solu-MEDROL 125 MG IV SCH (06:03)
[2018-02-12 06:30] LABS: ANION GAP 12.5 MEQ/L (5-15); BLOOD UREA NITROGEN 25 mg/dL (9-20); CHLORIDE 104 mmol/L (98-107); Carbon Dioxide 31 mmol/L (22-30); Creatinine 1 0.76 mg/dL (0.66-1.25); Glucose 152 mg/dL (74-106); NT PRO BNP 6390 pg/mL (0-1800); Potassium 4.4 mmol/L (3.5-5.1); SODIUM 143 mmol/L (137-145)
--- NOTE | 2018-02-12 08:48 | PCM.NOTE ---
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 the xopenex treatments seem to be making the rate up into the 120's after use and in the 90's after it settles down. Objective Exam General Appearance: no apparent distress Neurologic Exam: alert, oriented x 3, cooperative Skin Exam: warm, dry Ears, Nose, Throat Exam: moist mucous membranes Neck Exam: non-tender, supple Respiratory Exam: rhonchi, wheezing Cardiovascular Exam: normal heart sounds, murmur Gastrointestinal/Abdomen Exam: normal bowel sounds, No tenderness Extremity Exam: normal inspection, No calf tenderness, No pedal edema OBJECTIVE DATA Vital Signs: Vital Signs - 24 hr Temp Pulse Resp BP Pulse Ox 02/12/18 07:16 97.8 F 111 H 20 121/68 96 02/12/18 07:07 90 20 96 02/12/18 04:00 97.5 F 88 19 121/85 91 L 02/12/18 00:55 99 H 28 H 96 02/11/18 23:50 95 H 02/11/18 23:47 97.8 F 95 H 18 134/60 96 02/11/18 20:00 97.5 F 85 18 138/76 96 02/11/18 19:55 100 H 21 94 L 02/11/18 19:54 85 02/11/18 16:20 127 H 26 H 96 02/11/18 16:00 98 F 105 H 18 95/54 94 L 02/11/18 15:48 104 H 02/11/18 13:00 95 02/11/18 12:40 98.3 F 115 H 23 99/67 95 02/11/18 11:54 119 H 22 80/62 02/11/18 11:34 92 L 02/11/18 10:40 100.3 F 104 H 20 82/62 93 L 02/11/18 10:15 117 H 24 95 02/11/18 09:57 100.3 F 120 H 22 104/69 90 L Oxygen-Last 24 hours O2 Percentage 4 Liters = 36% O2 Percentage 2 Liters = 28% O2 Percentage 2 Liters = 28% O2 Percentage 2 Liters = 28% O2 Percentage 2 Liters = 28% O2 Percentage 2 Liters = 28% O2 Percentage 2 Liters = 28% Pain Assessment - Last Documented Pain Intensity 0 Pain Scale Used 0-10 Pain Scale,FLACC Intake and Output: Intake & Output 02/09/18 02/10/18 02/11/18 02/12/18 11:59 11:59 11:59 11:59 Intake Total 440 Output Total 1200 Balance -760 Weight 122.47 kg 126 kg Lab Results: Lab Results-Last 24 Hours 02/11/18 02/11/18 02/11/18 Range/Units 10:05 10:05 10:05 WBC 9.8 (4.0-10.5) K/mm3 RBC 4.19 (4.1-5.6) M/mm3 Hgb 12.8 (12.5-18.0) gm/dl Hct 39.9 L (42-50) % MCV 95.2 (78-100) fl MCH 30.5 (26-32) pg MCHC 32.1 (32-36) g/dl RDW 15.0 H (11.5-14.0) % Plt Count 209 (150-450) K/mm3 MPV 10.2 H (6-9.5) fl Segmented Neutrophils 58 (36.-66.) % Band Neutrophils 7 H (0.0-2.0) % Lymphocytes (Manual) 19 L (24-44) % Monocytes (Manual) 15 H (0.0-12.0) % Eosinophils (Manual) 1 (0.00-3.0) % Toxic Granulation 1+ Platelet Estimate NORMAL (NORMAL) RBC Morphology NORMAL PT 26.3 H (8.83-12.87) SECONDS INR 2.24 (0.8-3.0) Sodium 141 (137-145) mmol/L Potassium 4.3 (3.5-5.1) mmol/L Chloride 104 (98-107) mmol/L Carbon Dioxide 28 (22-30) mmol/L Anion Gap 13.3 (5-15) MEQ/L BUN 20 (9-20) mg/dL Creatinine 0.76 (0.66-1.25) mg/dL Estimated GFR > 60.0 ML/MIN Glucose 135 H (74-106) mg/dL Lactic Acid (0.4-2.0) Calcium 8.9 (8.4-10.2) mg/dL Magnesium 1.9 (1.6-2.3) mg/dL Total Bilirubin 1.20 (0.2-1.3) mg/dL AST 16 L (17-59) U/L ALT 17 (0-50) U/L Alkaline Phosphatase 50 (38-126) U/L Troponin I (0.000-0.034) ng/mL NT-Pro-B Natriuret Pep 8220 H (0-1800) pg/mL Serum Total Protein 6.6 (6.3-8.2) g/dL Albumin 3.7 (3.5-5.0) g/dL Influenza Type A Ag (NEGATIVE) Influenza Type B Ag (NEGATIVE) RSV (PCR) (Negative) 02/11/18 02/11/18 02/11/18 Range/Units 10:05 10:15 10:35 WBC (4.0-10.5) K/mm3 RBC (4.1-5.6) M/mm3 Hgb (12.5-18.0) gm/dl Hct (42-50) % MCV (78-100) fl MCH (26-32) pg MCHC (32-36) g/dl RDW (11.5-14.0) % Plt Count (150-450) K/mm3 MPV (6-9.5) fl Segmented Neutrophils (36.-66.) % Band Neutrophils (0.0-2.0) % Lymphocytes (Manual) (24-44) % Monocytes (Manual) (0.0-12.0) % Eosinophils (Manual) (0.00-3.0) % Toxic Granulation Platelet Estimate (NORMAL) RBC Morphology PT (8.83-12.87) SECONDS INR (0.8-3.0) Sodium (137-145) mmol/L Potassium (3.5-5.1) mmol/L Chloride (98-107) mmol/L Carbon Dioxide (22-30) mmol/L Anion Gap (5-15) MEQ/L BUN (9-20) mg/dL Creatinine (0.66-1.25) mg/dL Estimated GFR ML/MIN Glucose (74-106) mg/dL Lactic Acid 1.1 (0.4-2.0) Calcium (8.4-10.2) mg/dL Magnesium (1.6-2.3) mg/dL Total Bilirubin (0.2-1.3) mg/dL AST (17-59) U/L ALT (0-50) U/L Alkaline Phosphatase (38-126) U/L Troponin I 0.017 (0.000-0.034) ng/mL NT-Pro-B Natriuret Pep (0-1800) pg/mL Serum Total Protein (6.3-8.2) g/dL Albumin (3.5-5.0) g/dL Influenza Type A Ag NEGATIVE (NEGATIVE) Influenza Type B Ag NEGATIVE (NEGATIVE) RSV (PCR) NEGATIVE (Negative) 02/11/18 02/11/18 02/11/18 Range/Units 13:18 16:15 19:30 WBC (4.0-10.5) K/mm3 RBC (4.1-5.6) M/mm3 Hgb (12.5-18.0) gm/dl Hct (42-50) % MCV (78-100) fl MCH (26-32) pg MCHC (32-36) g/dl RDW (11.5-14.0) % Plt Count (150-450) K/mm3 MPV (6-9.5) fl Segmented Neutrophils (36.-66.) % Band Neutrophils (0.0-2.0) % Lymphocytes (Manual) (24-44) % Monocytes (Manual) (0.0-12.0) % Eosinophils (Manual) (0.00-3.0) % Toxic Granulation Platelet Estimate (NORMAL) RBC Morphology PT (8.83-12.87) SECONDS INR (0.8-3.0) Sodium (137-145) mmol/L Potassium (3.5-5.1) mmol/L Chloride (98-107) mmol/L Carbon Dioxide (22-30) mmol/L Anion Gap (5-15) MEQ/L BUN (9-20) mg/dL Creatinine (0.66-1.25) mg/dL Estimated GFR ML/MIN Glucose (74-106) mg/dL Lactic Acid (0.4-2.0) Calcium (8.4-10.2) mg/dL Magnesium (1.6-2.3) mg/dL Total Bilirubin (0.2-1.3) mg/dL AST (17-59) U/L ALT (0-50) U/L Alkaline Phosphatase (38-126) U/L Troponin I 0.017 < 0.012 < 0.012 (0.000-0.034) ng/mL NT-Pro-B Natriuret Pep (0-1800) pg/mL Serum Total Protein (6.3-8.2) g/dL Albumin (3.5-5.0) g/dL Influenza Type A Ag (NEGATIVE) Influenza Type B Ag (NEGATIVE) RSV (PCR) (Negative) 02/11/18 02/12/18 02/12/18 Range/Units 22:35 05:15 05:15 WBC 7.5 (4.0-10.5) K/mm3 RBC 4.13 (4.1-5.6) M/mm3 Hgb 12.5 (12.5-18.0) gm/dl Hct 40.1 L (42-50) % MCV 97.1 (78-100) fl MCH 30.3 (26-32) pg MCHC 31.2 L (32-36) g/dl RDW 14.7 H (11.5-14.0) % Plt Count 200 (150-450) K/mm3 MPV 10.3 H (6-9.5) fl Segmented Neutrophils (36.-66.) % Band Neutrophils (0.0-2.0) % Lymphocytes (Manual) (24-44) % Monocytes (Manual) (0.0-12.0) % Eosinophils (Manual) (0.00-3.0) % Toxic Granulation Platelet Estimate (NORMAL) RBC Morphology PT (8.83-12.87) SECONDS INR (0.8-3.0) Sodium 143 (137-145) mmol/L Potassium 4.4 (3.5-5.1) mmol/L Chloride 104 (98-107) mmol/L Carbon Dioxide 31 H (22-30) mmol/L Anion Gap 12.5 (5-15) MEQ/L BUN 25 H (9-20) mg/dL Creatinine 0.76 (0.66-1.25) mg/dL Estimated GFR > 60.0 ML/MIN Glucose 152 H (74-106) mg/dL Lactic Acid (0.4-2.0) Calcium 9.0 (8.4-10.2) mg/dL Magnesium (1.6-2.3) mg/dL Total Bilirubin (0.2-1.3) mg/dL AST (17-59) U/L ALT (0-50) U/L Alkaline Phosphatase (38-126) U/L Troponin I < 0.012 (0.000-0.034) ng/mL NT-Pro-B Natriuret Pep 6390 H (0-1800) pg/mL Serum Total Protein (6.3-8.2) g/dL Albumin (3.5-5.0) g/dL Influenza Type A Ag (NEGATIVE) Influenza Type B Ag (NEGATIVE) RSV (PCR) (Negative) Radiology Exams: Radiology Procedures Category Date Time Status CHEST 1 VIEW (PORTABLE) Stat Exams 02/11/18 10:03 Completed Multi-Disciplinary Progress Notes: Multi-Disciplinary Progress Notes 02/11/18 19:11 Respiratory Note by Jas Forman PER DAY SHIFT THERAPIST DR. TAYLOR AGREED TO SWITCH PT TX FROM DUO Q4 TO XOP Q6 DUE TO CARDIAC ISSUES. NO ORDERS FOR XOP WERE PLACED BY DAY SHIFT SO I PLACED ORDER FOR XOP Q6. Initialized on 02/11/18 19:11 - END OF NOTE Assessment/Plan (1) COPD exacerbation Current Visit: Yes Status: Acute Onset Date: ~02/11/18 Assessment & Plan: will change xopenex to prn wean the steroids to po prednisone continue rocephin Code(s): J44.1 - CHRONIC OBSTRUCTIVE PULMONARY DISEASE W (ACUTE) EXACERBATION (2) Atrial fibrillation with RVR Current Visit: Yes Status: Acute Onset Date: ~02/11/18 Assessment & Plan: continue carvedilol and will add po digoxin today. Code(s): I48.91 - UNSPECIFIED ATRIAL FIBRILLATION (3) Chronic systolic congestive heart failure, NYHA class 3 Current Visit: Yes Status: Chronic Code(s): I50.22 - CHRONIC SYSTOLIC ( CONGESTIVE) HEART FAILURE
[2018-02-12] MEDS: Cozaar 50 MG PO SCH (09:45)
[2018-02-12] MEDS: Lanoxin 0.125MG TABLET PO SCH (09:45)
[2018-02-12] MEDS: ECOTRIN 81 MG PO SCH (09:46)
[2018-02-12] MEDS: COREG 12.5 MG PO SCH ×2 (09:46→21:53)
[2018-02-12] MEDS: LASIX 20 MG PO SCH (09:46)
[2018-02-12] MEDS: DELTASONE 20 MG PO SCH (09:47)
[2018-02-12] MEDS: ELIQUIS 2.5 MG TABLET PO SCH ×2 (09:47→21:54)
[2018-02-12] MEDS: Aldactone 25 MG PO SCH (09:47)
[2018-02-12] MEDS: ROCEPHIN 1 Gm-D5w 50 ml Bag** 1 G/50 ML IVPB IV SCH (09:57)
[2018-02-12] MEDS ORDERED: ASPIRIN PO SCH (10:00)
[2018-02-12] MEDS ORDERED: COREG 12.5 MG PO SCH (10:00)
[2018-02-12] MEDS ORDERED: Xopenex 1.25 MG/0.5 ML UD NEBULE IH PRN (10:06)
[2018-02-12] MEDS ORDERED: Sodium Chloride 3 ML UD NEBULES IH SCH (19:00)
[2018-02-12] MEDS ORDERED: Xopenex 1.25 MG/0.5 ML UD NEBULE IH SCH (19:00)
[2018-02-13] MEDS: Sodium Chloride 0.9% 10 ML FLUSH Syringe IV SCH ×4 (06:22→21:58)
[2018-02-13] MEDS ORDERED: Xopenex 1.25 MG/0.5 ML UD NEBULE IH ONE (07:48)
[2018-02-13] MEDS ORDERED: Sodium Chloride 3 ML UD NEBULES IH ONE (07:49)
--- NOTE | 2018-02-13 08:23 | PCM.NOTE ---
Date and Time: 02/13/18822 Subjective Assessment: still short of breath with exertion, wheezing an dcoughing more production of yellow mucous now as well. He has no chest pain or swelling. Objective Exam General Appearance: no apparent distress, obese Neurologic Exam: alert, oriented x 3 Skin Exam: warm, dry Neck Exam: non-tender, supple Respiratory Exam: wheezing, No crackles/rales Cardiovascular Exam: murmur, tachycardia, irregular, No edema Gastrointestinal/Abdomen Exam: soft, normal bowel sounds, No tenderness, No distention Extremity Exam: No pedal edema OBJECTIVE DATA Vital Signs: Vital Signs - 24 hr Temp Pulse Resp BP BP Pulse Ox 02/13/18 07:58 100 H 24 96 02/13/18 07:17 98 F 102 H 20 117/70 92 L 02/13/18 04:00 98.6 F 114 H 20 118/73 94 L 02/13/18 00:08 98.5 F 102 H 18 114/69 94 L 02/12/18 20:07 98.6 F 114 H 24 109/73 94 L 02/12/18 19:45 111 H 20 95 02/12/18 15:49 97.9 F 106 H 20 128/76 94 L 02/12/18 11:52 98 F 113 H 22 129/63 94 L 02/12/18 09:45 111 H 121/68 Oxygen-Last 24 hours O2 Percentage 2 Liters = 28% O2 Percentage 2 Liters = 28% O2 Percentage 2 Liters = 28% O2 Percentage 2 Liters = 28% Pain Assessment - Last Documented Pain Intensity 0 Pain Scale Used 0-10 Pain Scale Intake and Output: Intake & Output 02/10/18 02/11/18 02/12/18 02/13/18 11:59 11:59 11:59 11:59 Intake Total 440 500 Output Total 1200 500 Balance -760 0 Weight 122.47 kg 126 kg 126.4 kg Radiology Exams: Radiology Procedures Category Date Time Status CHEST 1 VIEW (PORTABLE) Routine Exams 02/13/18 08:20 Ordered CHEST 1 VIEW (PORTABLE) Stat Exams 02/11/18 10:03 Completed Multi-Disciplinary Progress Notes: Multi-Disciplinary Progress Notes 02/12/18 09:35 (created 02/12/18 10:59) Case Management Note by Miranda Huang DISCHARGE PLAN REVIEWED. AT HOME CAN ASSIST IF NEEDED. NORMALLY ACTIVE AND INDEPENDENT WITH ALL ADL'S. WILL FOLLOW FOR ALL DC NEED.S Initialized on 02/12/18 10:59 - END OF NOTE Assessment/Plan (1) COPD exacerbation Current Visit: Yes Status: Acute Onset Date: ~02/11/18 Assessment & Plan: worsened wheezing today with the steroid wean he continues to have worsening tachycardia immediately following the xopenex treatments. his HR has ranged 90 to 110 for the most part at rest. repeat cxr with the worsened productive sputum and wheezing today continue steroid and antibiotic continue heart failure treatment chronically with chronic LVEF of 15% afib continue carvedilol 25 bid and the digoxin that was added this admission outpatient cardiology f/u is 02/25 he has not been able to wean the oxygen off yet will continue to work on this but may need discharged with home O2 he has been diagnosed with sleep apnea previously but he returned the cpap and supplies as he didn't think it did anything. Code(s): J44.1 - CHRONIC OBSTRUCTIVE PULMONARY DISEASE W (ACUTE) EXACERBATION (2) Atrial fibrillation with RVR Current Visit: Yes Status: Acute Onset Date: ~02/11/18 Code(s): I48.91 - UNSPECIFIED ATRIAL FIBRILLATION (3) Chronic systolic congestive heart failure, NYHA class 3 Current Visit: Yes Status: Chronic Onset Date: ~02/12/18 Assessment & Plan: lvef 15-20% Code(s): I50.22 - CHRONIC SYSTOLIC (CONGESTIVE) HEART FAILURE (4) Acute hypoxemic respiratory failure Current Visit: Yes Status: Acute Code(s): J96.01 - ACUTE RESPIRATORY FAILURE WITH HYPOXIA (5) Sleep apnea Current Visit: Yes Status: Chronic Code(s): G47.30 - SLEEP APNEA, UNSPECIFIED
--- NOTE | 2018-02-13 08:59 | XRAY ---
Indication: Cough. Comparison: February 11, 2018. Portable chest unchanged again hyperinflated with bibasilar fibrosis/scarring and right base calcified granuloma. Heart is not enlarged. No new/acute findings.
[2018-02-13] MEDS: LASIX 20 MG PO SCH (10:44)
[2018-02-13] MEDS: Lanoxin 0.125MG TABLET PO SCH (10:44)
[2018-02-13] MEDS: Aldactone 25 MG PO SCH (10:44)
[2018-02-13] MEDS: ROCEPHIN 1 Gm-D5w 50 ml Bag** 1 G/50 ML IVPB IV SCH (10:44)
[2018-02-13] MEDS: Cozaar 50 MG PO SCH (10:45)
[2018-02-13] MEDS: ELIQUIS 2.5 MG TABLET PO SCH ×2 (10:45→21:58)
[2018-02-13] MEDS: ECOTRIN 81 MG PO SCH (10:45)
[2018-02-13] MEDS: DELTASONE 20 MG PO SCH (10:45)
[2018-02-13] MEDS: COREG 12.5 MG PO SCH ×2 (10:45→21:58)
[2018-02-14 05:54] LABS: Hematocrit 41.4 % (42-50); Hemoglobin 13.3 gm/dl (12.5-18.0); Mean Cell Volume 96.5 fl (78-100); Mean Corpuscular Hgb Concent. 32.1 g/dl (32-36); Mean Platelet Volume 9.9 fl (6-9.5); Platelet Count 244 K/mm3 (150-450); Red Blood Count 4.29 M/mm3 (4.1-5.6); White Blood Count 13.9 K/mm3 (4.0-10.5)
[2018-02-14] MEDS: Sodium Chloride 0.9% 10 ML FLUSH Syringe IV SCH ×3 (06:04→21:53)
[2018-02-14 06:18] LABS: ANION GAP 10.8 MEQ/L (5-15); BLOOD UREA NITROGEN 37 mg/dL (9-20); CHLORIDE 105 mmol/L (98-107); Calcium 9.2 mg/dL (8.4-10.2); Carbon Dioxide 33 mmol/L (22-30); Creatinine 1 0.85 mg/dL (0.66-1.25); Glucose 109 mg/dL (74-106); NT PRO BNP 3040 pg/mL (0-1800); Potassium 4.6 mmol/L (3.5-5.1); SODIUM 145 mmol/L (137-145)
[2018-02-14] MEDS: Cozaar 50 MG PO SCH (09:34)
[2018-02-14] MEDS: ECOTRIN 81 MG PO SCH (09:34)
[2018-02-14] MEDS: solu-MEDROL 125 MG IV SCH ×2 (09:34→16:51)
[2018-02-14] MEDS: ROCEPHIN 1 Gm-D5w 50 ml Bag** 1 G/50 ML IVPB IV SCH (09:34)
[2018-02-14] MEDS: ELIQUIS 2.5 MG TABLET PO SCH ×2 (09:35→21:53)
[2018-02-14] MEDS: Aldactone 25 MG PO SCH (09:35)
[2018-02-14] MEDS: Lanoxin 0.125MG TABLET PO SCH (09:35)
[2018-02-14] MEDS: COREG 12.5 MG PO SCH ×2 (09:36→21:53)
[2018-02-14] MEDS: LASIX 20 MG PO SCH (09:36)
[2018-02-15] MEDS: solu-MEDROL 125 MG IV SCH ×2 (00:27→08:12)
[2018-02-15] MEDS: Sodium Chloride 0.9% 10 ML FLUSH Syringe IV SCH (06:00)
[2018-02-15 08:07] VITALS: PULSE 82; O2SAT 97
[2018-02-15 08:08] VITALS: BP 128/71
[2018-02-15] MEDS: Aldactone 25 MG PO SCH (09:19)
[2018-02-15] MEDS: ROCEPHIN 1 Gm-D5w 50 ml Bag** 1 G/50 ML IVPB IV SCH (09:19)
[2018-02-15] MEDS: Cozaar 50 MG PO SCH (09:19)
[2018-02-15] MEDS: COREG 12.5 MG PO SCH (09:19)
[2018-02-15] MEDS: LASIX 20 MG PO SCH (09:19)
[2018-02-15] MEDS: ECOTRIN 81 MG PO SCH (09:19)
[2018-02-15] MEDS: Lanoxin 0.125MG TABLET PO SCH (09:20)
[2018-02-15] MEDS: ELIQUIS 2.5 MG TABLET PO SCH (09:20)
--- NOTE | 2018-02-15 09:25 | PCM.DCORD ---
- Discharge Discharge Date: 02/15/18 Condition: Good Prescriptions: New Prednisone 10 mg [Deltasone 10 mg] 10 mg PO DAILY #18 tablet Continue Aspirin 1 cap PO DAILY Apixaban [Eliquis 5 mg Tablet] 5 mg PO BID #60 tablet Spironolactone 25 mg PO DAILY Losartan Potassium 100 mg PO DAILY Furosemide 20 mg [Lasix 20 mg] 20 mg PO DAILY Carvedilol 25 mg PO BID Instructions: Atrial Fibrillation (DC), Acute Bronchitis, Adult (DC) Additional Instructions: Patient requiring 02 at 2L nasal cannula at all times. Follow up with: GLADIS TAYLOR [Primary Care Provider] - Call for Appointment Forms: Patient Portal Information
--- NOTE | 2018-02-18 14:32 | DS ---
DISCHARGE DIAGNOSES: 1) CHRONIC OBSTRUCTIVE PULMONARY DISEASE WITH ACUTE EXACERBATION. 2) ATRIAL FIBRILLATION. 3) HISTORY OF RAPID VENTRICULAR RESPONSE AND CONGESTIVE HEART FAILURE AND HYPOXIA. HOSPITAL COURSE: The patient is a 77 year-old white male patient who developed fever and chills, productive sputum of greenish nature and increase in shortness of breath. The patient was evaluated in the emergency room and subsequently admitted to the hospital. He has previously been known to have atrial fibrillation and is on Eliquis at home but his rate got fast and he was given digoxin and fluids and after his breathing improved the rapid ventricular response resolved and he was running about 100. The patient was given Solu-Medrol and IV antibiotics. He was still wheezing as of 02/14/2018. He had been changed over to oral prednisone but required changing back to Solu-Medrol by 02/15/2018. He was wheeze-free. The patient did qualify for home oxygen during his stay. The patient is now felt to be ready for discharge home. He will continue to take his usual home medications with the addition of prednisone on 30, 20, 10 reducing schedule over three days each. He will be on home O2 on 2 liters per nasal cannula. 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 He was instructed to follow up with myself or Dr. Gannon in the next week as well as Dr. Shahab Donis (his usual doctor) is now leaving for a job elsewhere. The patient was also instructed to use Albuterol on a PRN basis if he should have some wheezing. If he has further problems in the interim he was instructed to come back to the hospital.
== END 2018-02-15 10:50 | disposition home or self-care (01) | DRG 190 ==
LOC: ED 09:47 → ICU 12:05 → MED SURG 02-12 06:44
PROVIDERS: ADMIT Family Medicine; ATTEND Family Medicine
DX: I48.91 Unspecified atrial fibrillation (principal); J96.01 Acute respiratory failure with hypoxia; R50.9 Fever, unspecified; I50.22 Chronic systolic (congestive) heart failure; R09.02 Hypoxemia; G47.30 Sleep apnea, unspecified; J44.1 Chronic obstructive pulmonary disease with (acute) exacerbation; Z79.01 Long term (current) use of anticoagulants; I95.9 Hypotension, unspecified; I10 Essential (primary) hypertension; J45.909 Unspecified asthma, uncomplicated; Z79.899 Other long term (current) drug therapy
CPT/HCPCS: 36000; 36415; 71045; 80048; 80053; 83605; 83735; 83880; 84484; 85025; 85027; 85610; 87040; 87070; 87631; 93005; 93041; 94150; 94640; 94762; 96360; 96365; 96374; 96375; 99285; J0696; J1160; J2930; A9270-GY